=== PATIENT | male | born 1965 | race Caucasian/White ===

== ENCOUNTER 2020-01-01 09:26 | Emergency (ER) | payer MEDICAID, SELFPAY ==
[~2020-01-01] VITALS: Ht 165.1 cm; Wt 104.3 kg
[2020-01-01 09:29] VITALS: Ht 165.1 cm; Wt 104.3 kg
[2020-01-01 10:37] LABS: CARBON DIOXIDE 24.6 mmol/L (21-32); CHLORIDE SERUM 103 mmol/L (98-107); GFR1 > 60 mL/min; GLUCOSE SERUM 152 mg/dL (74-106); POTASSIUM SERUM 3.8 mmol/L (3.5-5.1); SODIUM SERUM 137 mmol/L (136-145)
[2020-01-01 10:40] LABS: ALBUMIN 3.3 g/dL (3.4-5.0)
[2020-01-01 10:47] LABS: BASOPHIL % 0.3 % (0-2); PLATELET COUNT 166 x10^3mcL (130-400); RED CELL DISTRIBUTION WIDTH 13.5 % (11.5-14.5)
[2020-01-01 11:23] LABS: AST/SGOT 21 U/L (15-37); BILIRUBIN TOTAL 1.45 mg/dL (0.20-1.00); TOTAL PROTEIN, SERUM 7.6 g/dL (6.4-8.2)
[2020-01-01 11:24] LABS: ALKALINE PHOSPHATASE 67 U/L (46-116); ALT/SGPT 59 U/L (16-63); LACTIC DEHYDROGENASE (LDH) 160 U/L (100-190)
[2020-01-01 11:29] LABS: C REACTIVE PROTEIN 21.6 mg/dL (<=0.9)
[2020-01-01 13:43] VITALS: BP 181/70
== END 2020-01-01 13:10 | disposition home or self-care (01) ==
LOC: ED 09:26
PROVIDERS: Emergency Medicine
DX: R50.9 Fever, unspecified (principal); J02.9 Acute pharyngitis, unspecified; F17.210 Nicotine dependence, cigarettes, uncomplicated; Z20.828 Contact with and (suspected) exposure to other viral communicable diseases
CPT/HCPCS: 83880; 85378; 87804; U0003